=== PATIENT | female | born 1965 | race Caucasian/White ===

== ENCOUNTER 2017-11-30 06:48 | Day surgery (SDC) | payer OTHER ==
[~2017-11-30] VITALS: Ht 170.2 cm; Wt 71.7 kg
[2017-11-30] MEDS ORDERED: MIDAZOLAM HCL 5 MG/5 ML VIAL IVP ONE (08:40)
[2017-11-30] MEDS ORDERED: ONDANSETRON HCL 4 MG/2 ML VIAL IVP ONE (08:40)
[2017-11-30] MEDS ORDERED: SEVOFLURANE 15 MIN GAS INH ONE (08:40)
[2017-11-30] MEDS ORDERED: MIVACURIUM CHLORIDE 20 MG/10 ML VIAL (MIVACRON) INJ ONE (08:40)
[2017-11-30] MEDS ORDERED: fentaNYL CITRATE/PF 100 MCG/2 ML AMP IVP ONE (08:40)
[2017-11-30] MEDS ORDERED: KETOROLAC TROMETHAMINE 30 MG VIAL IVP ONE (08:40)
[2017-11-30] MEDS ORDERED: PROPOFOL 200MG/ 20ML VIAL (DIPRIVAN) IV ONE (08:40)
[2017-11-30] MEDS ORDERED: LR 1,000 ML IV.SOLN IV ONE (08:40)
[2017-11-30] MEDS ORDERED: LR 1,000 ML IV SCH (09:12)
[2017-11-30] MEDS ORDERED: METOCLOPRAMIDE HCL 10 MG/2 ML VIAL IVP PRN (09:15)
[2017-11-30] MEDS ORDERED: MORPHINE 4 MG/ML INJ. SYRINGE IVP PRN ×3 (09:15)
[2017-11-30] MEDS ORDERED: ONDANSETRON HCL 4 MG/2 ML VIAL IVP PRN (09:30)
[2017-11-30] MEDS ORDERED: OXYCODONE/ACETAMINOPHEN 5-325 TABLET PO PRN (09:30)
[2017-11-30] MEDS ORDERED: PROMETHAZINE HCL 25 MG/ML AMP IM PRN (09:30)
[2017-11-30] MEDS ORDERED: IBUPROFEN 600 MG TABLET ONE (11:15)
[2017-11-30] MEDS ORDERED: IBUPROFEN 600 MG TABLET PO ONE (11:15)
[2017-11-30 11:18] VITALS: BP_SYST 112
== END 2017-11-30 11:55 | disposition home or self-care (01) ==
LOC: SMU 06:48 → SDS 06:48
PROVIDERS: ATTEND Obstetrics & Gynecology
DX: N85.00 Endometrial hyperplasia, unspecified (principal); Z98.890 Other specified postprocedural states; Z98.51 Tubal ligation status; Z79.899 Other long term (current) drug therapy; Z88.0 Allergy status to penicillin; Z80.3 Family history of malignant neoplasm of breast; Z82.49 Family history of ischemic heart disease and other diseases of the circulatory system
CPT/HCPCS: 36415; 58563; 86886; 86900; 86901; 88305; J1885; J2250; J2405; J2704; J3010; J7120

== ENCOUNTER 2023-07-19 14:04 | Inpatient (IN) | payer OTHER ==
[~2023-07-19] VITALS: Ht 170.2 cm; Wt 70.4 kg
[2023-07-19 14:11] VITALS: BP_SYST 187; PULSE 121; RESP 18; TEMP 98.3; O2SAT 98
[2023-07-19 14:40] LABS: BILIRUBIN,URINE NEGATIVE (NEGATIVE); BLOOD, URINE NEGATIVE (NEGATIVE); CLARITY/URINE CLEAR (CLEAR); COLOR,URINE YELLOW (YELLOW); GLUCOSE,URINE NEGATIVE (NEGATIVE); KETONES,URINE NEGATIVE (NEGATIVE); LEUKOCYTE ESTERASE ,URINE NEGATIVE (NEGATIVE); NITRITE, URINE NEGATIVE (NEGATIVE); PROTEIN URINE NEGATIVE (NEGATIVE); UROBILINOGEN,URINE 0.2 (0.2-1.0)
[2023-07-19 14:59] LABS: BARBITURATE, URINE NEGATIVE (NEG <=200); BENZODIAZEPINE, URINE NEGATIVE (NEG <=150); CANNABINOID, URINE NEGATIVE (NEG <=50); COCAINE, URINE NEGATIVE (NEG <=150); METHAMPHETAMINES SCREEN,URINE NEGATIVE (NEG <=500); OPIATE, URINE NEGATIVE (NEG <=100); PHENCYCLIDINE SCREEN,URINE NEGATIVE (NEG <=25); URINE AMPHETAMINE NEGATIVE (NEG <=500); URINE METHADONE NEGATIVE (NEG <=200); URINE OXYCODONE SCREEN NEGATIVE (NEG <=100)
[2023-07-19 15:00] LABS: UR TRICYCLIC ANTIDEPRESSANTS NEGATIVE (NEG <=300)
[2023-07-19 15:13] LABS: PROTHROMBIN TIME 10.2 SECS (9.5-12.5)
[2023-07-19 15:15] LABS: BASOPHILS % (AUTO) 0.8 % (0.0-2.0); EOSINOPHILS % (AUTO) 0.2 % (0.0-4.0); HEMATOCRIT 40.1 % (36-48); LYMPHOCYTES # (AUTO) 1.3 K/uL (1.0-5.5); LYMPHOCYTES % (AUTO) 23.9 % (20.5-51.5); MEAN CORPUSCULAR HEMOGLOBIN 32 pg (27-31); MEAN CORPUSCULAR HGB CONC 35 % (32-36); MEAN CORPUSCULAR VOLUME 90 fL (79.0-98.0); MONOCYTES # (AUTO) 0.3 K/uL (0.0-1.0); NEUTROPHILS # (AUTO) 3.8 K/uL (1.8-7.7); NEUTROPHILS % (AUTO) 70.1 % (40.0-70.0); PLATELET COUNT (AUTO) 207 K/uL (130-430); RED BLOOD CELL COUNT(AUTO) 4.44 MIL/uL (4.2-6.2); RED CELL DISTRIBUTION WIDTH 13.7 % (9.0-15.0); WHITE BLOOD COUNT (AUTO) 5.4 K/uL (4.8-10.8)
[2023-07-19 15:18] LABS: ALCOHOL, BLOOD < 3 mg/dL (<10); ANION GAP 11 (5-15); CALCIUM 9.9 mg/dL (8.4-11.0); CARBON DIOXIDE 26 mmol/L (23-29); CHLORIDE 104 mmol/L (98-107); CREATININE 0.82 mg/dL (0.55-1.30); GFR AFRICAN AMERICAN 92 mL/min (>90); GFR NON AFRICAN-AMERICAN 76 mL/min (>90); GLUCOSE 137 mg/dL (74-106); POTASSIUM 4.1 mmol/L (3.5-5.1); SODIUM SERUM 141 mmol/L (136-145); UREA NITROGEN, BLOOD 10 mg/dL (8-21)
[2023-07-19] MEDS: ASPIRIN 81 MG TAB.CHEW PO ONE (17:56)
[2023-07-19] MEDS ORDERED: ACETAMINOPHEN 325 MG TABLET PO PRN ×2 (18:00→18:15)
[2023-07-19] MEDS ORDERED: ALBUTEROL SULFATE 0.083% 2.5 MG/3 ML VIAL.NEB INH PRN (18:00)
[2023-07-19] MEDS ORDERED: HYDROcodone/ACETAMIN 10-325 MG TAB PO PRN (18:00)
[2023-07-19] MEDS ORDERED: MORPHINE 2 MG/ML INJ. SYRINGE IVP PRN (18:00)
[2023-07-19] MEDS ORDERED: HYDROcodone/ACETAMIN 5-325 MG TAB (NORCO/ VICODIN) PO PRN (18:00)
[2023-07-19] MEDS ORDERED: ONDANSETRON HCL 4 MG/2 ML VIAL IVP PRN (18:00)
[2023-07-19 18:20] VITALS: BP_SYST 146; PULSE 103; O2SAT 100
[2023-07-19] MEDS: LOSARTAN POTASSIUM 25 MG TABLET PO ONE (19:01)
[2023-07-19 19:03] LABS: THYROID STIMULATING HORMONE 0.25 uIu/mL (0.34-4.82)
[2023-07-19 23:38] VITALS: BP_SYST 124; PULSE 72; RESP 18; TEMP 97.9; O2SAT 100
[2023-07-20 04:05] VITALS: BP_SYST 118; PULSE 92; RESP 18; TEMP 97.9; O2SAT 99
[2023-07-20 06:47] LABS: BASOPHILS % (AUTO) 0.7 % (0.0-2.0); EOSINOPHILS % (AUTO) 0.9 % (0.0-4.0); HEMATOCRIT 42.1 % (36-48); HEMOGLOBIN 14.5 g/dL (12.0-16.0); LYMPHOCYTES # (AUTO) 1.6 K/uL (1.0-5.5); LYMPHOCYTES % (AUTO) 30.6 % (20.5-51.5); MEAN CORPUSCULAR HEMOGLOBIN 31 pg (27-31); MEAN CORPUSCULAR HGB CONC 35 % (32-36); MEAN CORPUSCULAR VOLUME 91 fL (79.0-98.0); MONOCYTES # (AUTO) 0.4 K/uL (0.0-1.0); MONOCYTES % (AUTO) 8.7 % (1.7-9.3); NEUTROPHILS % (AUTO) 59.1 % (40.0-70.0); PLATELET COUNT (AUTO) 206 K/uL (130-430); RED BLOOD CELL COUNT(AUTO) 4.62 MIL/uL (4.2-6.2); WHITE BLOOD COUNT (AUTO) 5.1 K/uL (4.8-10.8)
[2023-07-20 07:51] LABS: ALBUMIN 3.7 g/dL (3.4-4.8); CALCIUM 9.4 mg/dL (8.4-11.0); CREATININE 0.75 mg/dL (0.55-1.30); FREE T4 (FREE THYROXINE) 1.1 ng/dl (0.8-1.5); POTASSIUM 4.5 mmol/L (3.5-5.1); TOTAL BILIRUBIN 0.5 mg/dL (0.0-1.0); TOTAL PROTEIN, SERUM 7.6 g/dL (6.4-8.3)
[2023-07-20 08:37] VITALS: O2SAT 100
[2023-07-20 08:43] VITALS: BP_SYST 128; PULSE 80; RESP 14; TEMP 98.1; O2SAT 100
[2023-07-20] MEDS: LOSARTAN POTASSIUM 25 MG TABLET PO SCH (09:56)
[2023-07-20] MEDS: ASPIRIN 81 MG TAB.CHEW PO SCH (09:56)
[2023-07-20 13:04] VITALS: BP_SYST 121; PULSE 85; RESP 16; TEMP 98; O2SAT 98
[2023-07-20] MEDS ORDERED: LEVO25TA7 PO (13:14)
[2023-07-20 13:27] VITALS: BP_SYST 99; PULSE 78; RESP 14; TEMP 98.4; O2SAT 99
[2023-07-20] MEDS ORDERED: LEVOTHYROXINE SODIUM 0.025 MG TABLET PO ONE (13:30)
[2023-07-20] MEDS ORDERED: LOSA-412 PO (13:39)
[2023-07-21] MEDS ORDERED: LEVOTHYROXINE SODIUM 0.025 MG TABLET PO SCH (07:00)
== END 2023-07-20 14:21 | disposition home or self-care (01) | DRG 69 ==
LOC: SED 14:04 → STU 17:50
PROVIDERS: ADMIT Family Medicine; ATTEND Family Medicine
DX: G45.8 Other transient cerebral ischemic attacks and related syndromes (principal); I10 Essential (primary) hypertension; E03.9 Hypothyroidism, unspecified; Z91.013 Allergy to seafood; Z88.0 Allergy status to penicillin
CPT/HCPCS: 36415; 70450-TC; 70551; 71045; 80048; 80053; 80307; 81001; 81003; 83037; 84436; 84439; 84443; 84484; 85025; 85610; 85730; 86886; 86900; 86901; 93005; 93306; 94070; 99285; G0378; G0482